=== PATIENT | female | born 1980 | race Caucasian/White ===

== ENCOUNTER → 2017-01-16 | Outpatient (CLI) | payer BC ==
--- NOTE | 2017-01-16 14:52 | RAD ---
Examination: 2 views of the lumbar spine History: History of back pain Comparison: None available. Findings: The vertebral body heights are maintained. No evidence of listhesis identified. The facets are well aligned. Impression: No acute osseous findings.
== END | disposition home or self-care (01) ==
LOC: RAD 14:19
PROVIDERS: ATTEND Family Medicine
DX: M54.5 Low back pain (principal)
CPT/HCPCS: 72100

== ENCOUNTER 2018-12-18 05:15 | Emergency (ER) | payer BC ==
[~2018-12-18] VITALS: Ht 162.6 cm; Wt 83.0 kg
--- NOTE | 2018-12-18 05:58 | PHYS DOC ---
Past History Past Medical History: No Pertinent History (ALIRIO SORENSEN DO) Past Surgical History: Tubal ligation Additional Past Surgical Histo: Left rotator cuff repair (ALIRIO SORENSEN DO) Smoking: Cigarettes Alcohol Use: None Drug Use: Marijuana Social History Narrative: a month ago in [place] (ALIRIO SORENSEN DO) Adult General Chief Complaint Chief Complaint: ABDOMINAL PAIN HPI HPI 38-year-old female sent with 2 day history of low back pain, abdominal pain, nausea, and diarrhea. Denies known sick contacts. Denies fever or chills. Denies known trauma. Patient with history of tubal ligation. (ALIRIO SORENSEN DO) Review of Systems Review of Systems Constitutional: Denies fever or chills Eyes: Denies redness or eye pain HENT: Denies nasal congestion or sore throat Respiratory: Denies cough or shortness of breath Cardiovascular: Denies chest pain or palpitations GI: Reports abdominal pain, nausea, and diarrhea : Denies dysuria or hematuria Musculoskeletal: Reports back pain Integument: Denies rash or skin lesions Neurologic: Denies headache, focal weakness or sensory changes Complete systems were reviewed and found to be within normal limits, except as documented in this note. (ALIRIO SORENSEN DO) Current Medications Current Medications Current Medications Medications (Trade) Dose Ordered Sig/Stephane Start Time Stop Time Status Last Admin Dose Admin Famotidine (Pepcid Vial) 20 mg 1X ONCE 12/18/18 06:00 12/18/18 06:01 UNV Ondansetron HCl (Zofran) 4 mg 1X ONCE 12/18/18 06:00 12/18/18 06:01 UNV Sodium Chloride 1,000 ml @ 1,000 mls/hr 1X ONCE 12/18/18 06:00 12/18/18 06:59 UNV (ALIRIO SORENSEN DO) Allergies Allergies Allergies Coded Allergies Type Severity Reaction Last Updated Verified No Known Drug Allergies 12/18/18 No (ALIRIO SORENSEN DO) Physical Exam Physical Exam Constitutional: Well developed, well nourished, ill appearing, non-toxic appearance HENT: Normocephalic, atraumatic, oropharynx moist Eyes: Conjunctiva normal, no discharge Neck: Normal range of motion, no tenderness, supple Cardiovascular: Heart rate normal, regular rhythm Lungs & Thorax: Bilateral breath sounds clear to auscultation, no wheezing Abdomen: Soft, no tenderness Skin: Warm, dry, no erythema, no rash Back: No midline tenderness, bilateral lumbar paraspinal tenderness, no CVA tenderness Extremities: No tenderness, ROM intact, no edema Neurologic: Alert and oriented X 3, no focal deficits noted Psychologic: Affect normal, judgement normal (ALIRIO SORENSEN DO) Current Patient Data Vital Signs Vital Signs Date Time Temp Pulse Resp B/P (MAP) Pulse Ox O2 Delivery O2 Flow Rate FiO2 12/18/18 05:29 98.4 90 16 97 Room Air (ALIRIO SORENSEN DO) EKG EKG [] (ALIRIO SORENSEN DO) Radiology/Procedures Radiology/Procedures [] (ALIRIO SORENSEN DO) Impressions: EXAM: CT ABDOMEN/PELVIS WITH CONTRAST. HISTORY: Abdominal pain, nausea. TECHNIQUE: Computed tomography of the abdomen and pelvis was performed after the intravenous administration of iodinated contrast. COMPARISON: None. FINDINGS: Lung windows through the visualized portions of the bases reveal no abnormality. Bone windows reveal no suspicious lesions. The liver, gallbladder, adrenal glands and pancreas are unremarkable. There is a small cyst in the left kidney. The right kidney is unremarkable. An 8 mm nodule in the spleen is likely a benign cyst or hemangioma. There are no pathologically enlarged lymph nodes. The colon is decompressed but demonstrates diffuse moderate wall thickening. The appendix is not inflamed. There is no small bowel obstruction or clear wall thickening. IMPRESSION: 1. Diffuse colonic wall thickening is consistent with colitis. Infectious or inflammatory etiologies are favored in this distribution. *One or more of the following individualized dose reduction techniques were utilized for this examination: 1. Automated exposure control. 2. Adjustment of the mA and/or kV according to patient size. 3. Use of iterative reconstruction technique. Electronically signed by: Reina Aguilar MD (12/18/2018 8:14 AM) [facility] DICTATED AND SIGNED BY: DAVID AGUILAR MD DATE: 12/18/18813 CC: BONNIE ALANIS DO; VIRGIL BEAL MD; ALIRIO SORENSEN DO ~ (BONNIE ALANIS DO) Course & Med Decision Making Course & Med Decision Making Pertinent Labs and Imaging studies reviewed. (See chart for details) Patient presents with abdominal pain with associated nausea and diarrhea. IV fluid hydration provided. Symptomatic treatment provided. Labs pending. CT abdomen/pelvis pending. Sign out given to Dr. Alanis for further evaluation and final disposition. Discussed current findings and plan with patient, who acknowledges understanding and agreement. (ALIRIO SORENSEN DO) Course & Med Decision Making Patient was given 4 morphine and 1 mg of Dilaudid for her pain. The patient's CT scan is significant for colitis, suggestive of infectious. See official report for more details. I will treat the patient with Augmentin for 7 days. I will give her first dose in the ED. I will also discharge her with [place] 5/325. (BONNIE ALANIS DO) Dragon Disclaimer Dragon Disclaimer This electronic medical record was generated, in whole or in part, using a voice recognition dictation system. (ALIRIO SORENSEN DO) Departure Departure: Impression: Primary Impression: Abdominal pain Additional Impression: Colitis Disposition: HOME, SELF-CARE Condition: STABLE Referrals: VIRGIL BEAL MD (PCP) Patient Instructions: Colitis Scripts Amoxicillin/Potassium Clav (AUGMENTIN 875-125 TABLET) 1 Each Tablet 1 TAB PO BID for colitis for 10 Days, #20 TAB 0 Refills Prov: BONNIE ALANIS DO 12/18/18 Hydrocodone Bit/Acetaminophen (NORCO 5-325 TABLET) 1 Each Tablet 1 TAB PO PRN Q6HRS PRN for PAIN, #14 TAB 0 Refills Prov: BONNIE ALANIS DO 12/18/18 Problem Qualifiers Primary Impression: Abdominal pain Abdominal location: generalized Qualified Codes: R10.84 - Generalized abdominal pain ALIRIO SORENSEN DO Dec 18, 2018 05:57 BONNIE ALANIS DO Dec 18, 2018 08:45
[2018-12-18] MEDS ORDERED: IOHEXOL 300 MG/ML 75 ML VIAL. IV ONE (06:15)
[2018-12-18] MEDS ORDERED: IV NORMAL SALINE 1,000ML 1,000 ML IV ONE (06:15)
[2018-12-18] MEDS ORDERED: FAMOTIDINE 20 MG/2 ML VIAL IVP ONE (06:15)
[2018-12-18] MEDS ORDERED: ONDANSETRON PF 4 MG/2 ML VIAL. IVP ONE (06:15)
[2018-12-18] MEDS ORDERED: CONTRAST GIVEN MC PRN (06:15)
[2018-12-18 06:19] LABS: BASO % 1 % (0-3); EOS % 0 % (0-3); HEMATOCRIT 40.2 % (36.0-47.0); HEMOGLOBIN 13.4 g/dL (12.0-15.5); LYMPH # 1.8 x10^3/uL (1.0-4.8); LYMPH % 27 % (24-48); MEAN CORPUSCULAR HEMOGLOBIN 29 pg (25-35); MEAN CORPUSCULAR HGB CONC 33 g/dL (31-37); MEAN CORPUSCULAR VOLUME 86 fL (79-100); MONO # 0.5 x10^3/uL (0.0-1.1); MONO % 8 % (0-9); NEUT # 4.4 x10^3uL (1.8-7.7); NEUT % 65 % (31-73); PLATELET COUNT 321 x10^3/uL (140-400); RED BLOOD COUNT 4.66 x10^6/uL (3.50-5.40); RED CELL DISTRIBUTION WIDTH 15.3 % (11.5-14.5); WHITE BLOOD COUNT 6.9 x10^3/uL (4.0-11.0)
[2018-12-18 06:24] LABS: BACTERIA,URINE FEW /HPF (0-FEW); BILIRUBIN,URINE NEG (NEG); CLARITY,URINE HAZY; COLOR,URINE YELLOW; GLUCOSE,URINE NEG (NEG); NITRITE,URINE NEG (NEG); SQUAMOUS EPITHELIAL CELL,UR FEW /LPF; UROBILINOGEN,URINE 0.2 mg/dL (0.2 mg/dL)
[2018-12-18 06:28] LABS: ALBUMIN 3.6 g/dL (3.4-5.0); ALBUMIN/GLOBULIN RATIO 0.9 (1.0-1.7); CALCIUM 8.8 mg/dL (8.5-10.1); CREATININE 0.8 mg/dL (0.6-1.0); GFR 81.2; MAGNESIUM 1.8 mg/dL (1.8-2.4); TOTAL BILIRUBIN 0.3 mg/dL (0.2-1.0); TOTAL PROTEIN 7.4 g/dL (6.4-8.2)
[2018-12-18] MEDS ORDERED: MORPHINE SULFATE 4 MG/ML DISP.SYRIN. IV ONE (07:00)
[2018-12-18] MEDS ORDERED: HYDROmorphone PF 1 MG/ML DISP.SYRIN IV ONE (07:45)
--- NOTE | 2018-12-18 08:17 | RAD ---
EXAM: CT ABDOMEN/PELVIS WITH CONTRAST. HISTORY: Abdominal pain, nausea. TECHNIQUE: Computed tomography of the abdomen and pelvis was performed after the intravenous administration of iodinated contrast. COMPARISON: None. FINDINGS: Lung windows through the visualized portions of the bases reveal no abnormality. Bone windows reveal no suspicious lesions. The liver, gallbladder, adrenal glands and pancreas are unremarkable. There is a small cyst in the left kidney. The right kidney is unremarkable. An 8 mm nodule in the spleen is likely a benign cyst or hemangioma. There are no pathologically enlarged lymph nodes. The colon is decompressed but demonstrates diffuse moderate wall thickening. The appendix is not inflamed. There is no small bowel obstruction or clear wall thickening. IMPRESSION: 1. Diffuse colonic wall thickening is consistent with colitis. Infectious or inflammatory etiologies are favored in this distribution. *One or more of the following individualized dose reduction techniques were utilized for this examination: 1. Automated exposure control. 2. Adjustment of the mA and/or kV according to patient size. 3. Use of iterative reconstruction technique. Electronically signed by: Reina Aguilar MD (12/18/2018 8:14 AM) [facility]
[2018-12-18] MEDS ORDERED: AMOX1TAB61 PO (08:44)
[2018-12-18] MEDS ORDERED: HYDR-3165 PO (08:44)
[2018-12-18] MEDS ORDERED: AMOXICILLIN/K CLAV 875/125MG TABLET. PO ONE (09:00)
[2018-12-18 09:05] VITALS: BP 126/70
== END 2018-12-18 09:19 | disposition home or self-care (01) ==
LOC: ER 05:15
DX: K52.9 Noninfective gastroenteritis and colitis, unspecified (principal); F17.210 Nicotine dependence, cigarettes, uncomplicated; Z98.51 Tubal ligation status
CPT/HCPCS: 36415; 74177; 80053; 81001; 81025; 83605; 83690; 83735; 85025; 87086; 96361; 96374; 96375; 99285; J1170; J2270; J2405; J3490; Q9967; J7030

== ENCOUNTER 2020-02-01 20:56 | Emergency (ER) | payer BC, OTHER ==
[~2020-02-01] VITALS: Ht 162.6 cm; Wt 77.4 kg
[~2020-02-01 20:56] MED LIST: AMOX1TAB61 PO; HYDR-3165 PO
[2020-02-01 21:00] VITALS: BP 140/91
--- NOTE | 2020-02-01 21:03 | PHYS DOC ---
Past History Past Medical History: No Pertinent History Past Surgical History: Tubal ligation Additional Past Surgical Histo: Left rotator cuff repair Smoking: Cigarettes Alcohol Use: None Drug Use: Marijuana Adult General Chief Complaint Chief Complaint: HAND PROBLEM HPI HPI Patient is a 39-year-old female who presents for dysuria and bilateral hand swelling. Reports dysuria started approximately 48 hours ago, no fever, flank pain, vaginal discharge, or other concerning signs or symptoms. States she also has had bilateral hand swelling that started around similar time with subjective numbness and tingling over her entire palmar surfaces, no known trauma, inciting event, recent ingestion or pain in neck and upper extremity areas. Patient concerned because she has been more fatigued than usual, reportedly fell asleep yesterday at 2 PM and woke up today at 3 PM sleeping 13 hours in total which is unusual for her. She works at local [employer] and is around [employer] daily, reports last being tested and was negative. Review of Systems Review of Systems Fourteen body systems of review of systems have been reviewed. See HPI for pertinent positives and negative responses, other bravo all other systems are negative, non-pertinent or non-contributory Allergies Allergies Allergies Coded Allergies Type Severity Reaction Last Updated Verified No Known Drug Allergies 12/18/18 No Physical Exam Physical Exam Constitutional: Well developed, well nourished, no acute distress, non-toxic appearance. HENT: Normocephalic, atraumatic, bilateral external ears normal, oropharynx moist, no oral exudates, nose normal. Eyes: PERRLA, EOMI, conjunctiva normal, no discharge. Neck: Normal range of motion, no tenderness, supple, no stridor. Cardiovascular: Heart rate regular without any murmurs rubs or gallops Lungs & Thorax: No respiratory distress or accessory muscle use, bilateral chest rise, diffuse wheezing without any rhonchi and/or rails Abdomen: Abdomen soft, non-tender, bowel sounds present in all quadrants, no guarding or rebound, nonacute abdomen. Skin: Warm, dry, no erythema, no rash. Back: No tenderness, no CVA tenderness. Extremities: No tenderness, no cyanosis, no clubbing, ROM intact, no edema. Neurologic: Alert and oriented X 3, cranial nerves II through XII intact, normal motor & sensory function, no focal deficits noted. Negative Spurling exam bilaterally Psychologic: Affect normal, judgement normal, mood normal. Current Patient Data Vital Signs Vital Signs Date Time Temp Pulse Resp B/P (MAP) Pulse Ox O2 Delivery O2 Flow Rate FiO2 02/01/20 21:00 98.1 83 16 140/91 (107) 99 Room Air Lab Results Laboratory Tests Test 02/01/20 21:05 02/01/20 21:22 Urine Collection Type Unknown Urine Color Kylie Urine Clarity Turbid Urine pH 6.0 Urine Specific [place] >=1.030 Urine Protein Neg (NEG-TRACE) Urine Glucose (UA) Neg mg/dL (NEG) Urine Ketones (Stick) Trace mg/dL (NEG) Urine Blood Small (NEG) Urine Nitrite Pos (NEG) Urine Bilirubin Neg (NEG) Urine Urobilinogen Dipstick 1.0 mg/dL (0.2 mg/dL) Urine Leukocyte Esterase Mod (NEG) Urine RBC 6-10 /HPF (0-2) Urine WBC >40 /HPF (0-4) Urine Squamous Epithelial Cells Few /LPF Urine Bacteria Many /HPF (0-FEW) Urine Mucus Mod /LPF Bedside Urine HCG, Qualitative hcg negative (Negative) EKG EKG [] Radiology/Procedures Radiology/Procedures [] Heart Score Risk Factors: Risk Factors: DM, Current or recent (<one month) smoker, HTN, HLP, family history of CAD, obesity. Risk Scores: Risk Factors: DM, Current or recent (<one month) smoker, HTN, HLP, family history of CAD, obesity. Course & Med Decision Making Course & Med Decision Making Pertinent Labs and Imaging studies reviewed. (See chart for details) Well-appearing and non-txic. Not . Unlikely TOA, Ovarian Torsion, PID, gonorrhea/chlamydia. Low suspicion for Infected Urolithiasis, AAA, Cholecystitis, Pancreatitis, SBO, Appendicitis, or other acute abdomen. Rx: Uncomplicated UTI Disposition: Discharge home. SRP discussed. Advised follow up with primary care provider within 24-72 hours. Patient to be tested for Covid at work per usual Monday Dragon Disclaimer Dragon Disclaimer This electronic medical record was generated, in whole or in part, using a voice recognition dictation system. Departure Departure: Impression: Primary Impression: UTI (urinary tract infection), uncomplicated Disposition: 01 DC HOME SELF CARE/HOMELESS Condition: STABLE Referrals: VIRGIL BEAL MD (PCP) Patient Instructions: Urinary Tract Infection Additional Instructions: You were seen for a urinary tract infection. Please continue to take the antibiotics as prescribed. You should return to the ED if you develop worsening pain, fever, flank pain, or any other new or concerning symptoms. Follow up with primary care for further management if ongoing symptoms. Scripts Nitrofurantoin Monohyd/M-Cryst (MACROBID 100 MG CAPSULE) 100 Mg Capsule 1 CAP PO BID for UTI for 5 Days, #9 CAP 0 Refills Prov: MUNIRA NINA DO 02/01/20 MUNIRA NINA DO Feb 01, 2020 21:03
[2020-02-01 21:30] LABS: BILIRUBIN,URINE NEG (NEG); CLARITY,URINE TURBID; COLOR,URINE AMBER; GLUCOSE,URINE NEG (NEG); NITRITE,URINE POS (NEG)
[2020-02-01 21:38] LABS: BACTERIA,URINE MANY /HPF (0-FEW); SQUAMOUS EPITHELIAL CELL,UR FEW /LPF; WBC,URINE >40 /HPF (0-4)
[2020-02-01] MEDS ORDERED: NITR100C62 PO (21:54)
[2020-02-01] MEDS ORDERED: NITROFURANTOIN MONOHYD/M-CRYST 100 MG CAPSULE. PO ONE (22:30)
== END 2020-02-01 22:02 | disposition home or self-care (01) ==
LOC: ER 20:56
DX: N39.0 Urinary tract infection, site not specified (principal); R30.0 Dysuria; R60.0 Localized edema; R53.83 Other fatigue; F17.210 Nicotine dependence, cigarettes, uncomplicated; F12.90 Cannabis use, unspecified, uncomplicated; Z98.51 Tubal ligation status; Z98.890 Other specified postprocedural states
CPT/HCPCS: 81001; 81025; 87086; 99283

== ENCOUNTER 2020-04-26 14:33 | Emergency (ER) | payer OTHER ==
[~2020-04-26] VITALS: Ht 162.6 cm; Wt 77.4 kg
[~2020-04-26 14:33] MED LIST changes: +NITR100C62 PO
[2020-04-26 14:44] VITALS: BP 159/76
--- NOTE | 2020-04-26 14:50 | PHYS DOC ---
Past History Past Medical History: No Pertinent History Past Surgical History: Tubal ligation Additional Past Surgical Histo: Left rotator cuff repair Smoking: Cigarettes Alcohol Use: Occasionally Drug Use: Marijuana Adult General Chief Complaint Chief Complaint: ABDOMINAL PAIN HPI HPI Patient is a 39-year-old female who presents today with abdominal pain. Pain started yesterday and is described as constant, diffuse, and difficult to characterize. Nothing makes it better. Eating and movement make it worse. The pain is associated with nausea and vomiting. She denies any recent illness, fevers, constipation, or diarrhea. She does state that she has had 4 bowel m ovements today that were normally formed. The pain does not radiate, and she rates it as a 10/10 in severity. Patient reports a history of colitis, and states that she had a flare-up last week at which time she did not seek medical treatment. Review of Systems Review of Systems Fourteen body systems of review of systems have been reviewed. See HPI for pertinent positives and negative responses, other bravo all other systems are negative, non-pertinent or non-contributory Allergies Allergies Allergies Coded Allergies Type Severity Reaction Last Updated Verified No Known Drug Allergies 02/01/20 No Physical Exam Physical Exam Constitutional: Well developed, well nourished, no acute distress, non-toxic appearance. Appears uncomfortable HENT: Normocephalic, atraumatic, bilateral external ears normal, oropharynx moist, no oral exudates, nose normal. Eyes: PERRLA, EOMI, conjunctiva normal, no discharge. Neck: Normal range of motion, no tenderness, supple, no stridor. Cardiovascular: Heart rate regular, sinus rhythm, no murmurs rubs or gallops Lungs & Thorax: Bilateral breath sounds clear to auscultation Abdomen: Bowel sounds normal, soft, generalized tenderness with guarding present, no rebound, no masses, no pulsatile masses. Nonsurgical abdomen, no pe ritoneal signs Skin: Warm, dry, no erythema, no rash. Back: No tenderness, no CVA tenderness. Extremities: No tenderness, no cyanosis, no clubbing, ROM intact, no edema. Neurologic: Alert and oriented X 3, grossly normal motor & sensory function, no focal deficits noted. Psychologic: Affect normal, judgement normal, mood normal. Current Patient Data Vital Signs Vital Signs Date Time Temp Pulse Resp B/P (MAP) Pulse Ox O2 Delivery O2 Flow Rate FiO2 04/26/20 14:44 98.3 86 18 159/76 (103) 95 Lab Results Laboratory Tests Test 04/26/20 15:20 White Blood Count 9.0 x10^3/uL Red Blood Count 4.67 x10^6/uL Hemoglobin 14.4 g/dL Hematocrit 43.6 % Mean Corpuscular Volume 93 fL Mean Corpuscular Hemoglobin 31 pg Mean Corpuscular Hemoglobin Concent 33 g/dL Red Cell Distribution Width 13.5 % Platelet Count 271 x10^3/uL Neutrophils (%) (Auto) 74 % Lymphocytes (%) (Auto) 20 % Monocytes (%) (Auto) 5 % Eosinophils (%) (Auto) 0 % Basophils (%) (Auto) 1 % Neutrophils # (Auto) 6.7 x10^3uL Lymphocytes # (Auto) 1.8 x10^3/uL Monocytes # (Auto) 0.4 x10^3/uL Eosinophils # (Auto) 0.0 x10^3/uL Basophils # (Auto) 0.0 x10^3/uL Sodium Level 140 mmol/L Potassium Level 3.8 mmol/L Chloride Level 106 mmol/L Carbon Dioxide Level 25 mmol/L Anion Gap 9 Blood Urea Nitrogen 7 mg/dL Creatinine 0.7 mg/dL Estimated GFR (Cockcroft-Gault) 94.2 BUN/Creatinine Ratio 10 Glucose Level 122 mg/dL Calcium Level 9.1 mg/dL Total Bilirubin 0.5 mg/dL Aspartate Amino Transf (AST/SGOT) 23 U/L Alanine Aminotransferase (ALT/SGPT) 36 U/L Alkaline Phosphatase 72 U/L Troponin I Quantitative < 0.017 ng/mL Total Protein 7.5 g/dL Albumin 3.7 g/dL Albumin/Globulin Ratio 1.0 Lipase 98 U/L Current Medications Medications (Trade) Dose Ordered Sig/Stephane Route PRN Reason Start Time Stop Time Status Last Admin Dose Admin Sodium Chloride 1,000 ml @ 1,000 mls/hr Q1H IV 04/26/20 15:00 04/26/20 15:59 DC 04/26/20 15:17 Ondansetron HCl (Zofran) 4 mg 1X ONCE IVP 04/26/20 15:00 04/26/20 15:08 DC 04/26/20 15:18 Morphine Sulfate (Morphine 2mg Syringe) 2 mg 1X ONCE IV 04/26/20 15:00 04/26/20 15:08 DC 04/26/20 15:18 Iohexol (Omnipaque 300 Mg/ml) 75 ml 1X ONCE IV 04/26/20 15:15 04/26/20 15:16 DC 04/26/20 15:40 EKG EKG EKG reviewed and interpreted by me. Normal sinus rhythm with a rate of 62 bpm. Intervals unremarkable. Normal axis. No ischemia. No STEMI. Radiology/Procedures Radiology/Procedures PROCEDURE: CT ABD PELV W/ IV CONTRST ONLY EXAM: CT ABDOMEN/PELVIS WITH CONTRAST. HISTORY: Left lower quadrant pain. TECHNIQUE: Computed tomography of the abdomen and pelvis was performed after the intravenous administration of iodinated contrast. One or more of the following individualized dose reduction techniques were utilized for this examination: 1. Automated exposure control. 2. Adjustment of the mA and/or kV according to patient size. 3. Use of iterative reconstruction technique. COMPARISON: 12/18/2018. FINDINGS: Lung windows through the visualized portions of the bases reveal no abnormality. Bone windows reveal no suspicious lesions. There is a small to moderate hiatal hernia. The liver, gallbladder, pancreas, spleen, adrenal glands and right kidney are unremarkable. A 9 mm cyst in the left kidney appears benign. There are no pathologically enlarged lymph nodes. Wall thickening throughout the colon is consistent with colitis. The appendix is not inflamed. There is no small bowel wall thickening or obstruction. The bladder is partially decompressed but also demonstrates wall thickening. IMPRESSION: 1. Diffuse colonic wall thickening is consistent with colitis. Infectious or inflammatory etiologies are favored in this distribution. 2. Small to moderate hiatal hernia. 3. Nonfocal bladder wall thickening suggests chronic outlet obstruction or inflammation. Correlate with urinalysis. Electronically signed by: Reina Aguilar MD (04/26/2020 4:11 PM) [facility] Heart Score C/O Chest Pain: N/A HEART Score for Chest Pain: HEART Score for Chest Pain Response (Comments) Value History Slighlty/Non-Suspicious 0 ECG Normal 0 Age < 45 0 Risk Factors 1 or 2 Risk Factors 1 Troponin < Normal Limit 0 Total 1 Risk Factors: Risk Factors: DM, Current or recent (<one month) smoker, HTN, HLP, family history of CAD, obesity. Risk Scores: Risk Factors: DM, Current or recent (<one month) smoker, HTN, HLP, family history of CAD, obesity. Course & Med Decision Making Course & Med Decision Making Afebrile hemodynamically stable patient with history and physical examination concerning for intra-abdominal pathology that is nonsurgical in nature Comprehensive ER work-up performed, consistent with colitis that patient has experienced in the past. She is unsure of prior diagnosis status post colonoscopy but thinks she was diagnosed with infectious colitis prior as she responded with antibiotics Joint decision to start antibiotics with close PCP follow-up within upcoming 72 hours and outpatient GI follow-up for colonoscopy after resolution of acute disease process Strict return precautions were discussed with good understanding by patient. All questions and concerns addressed prior to your departure in stable condition Dragon Disclaimer Dragon Disclaimer This electronic medical record was generated, in whole or in part, using a voice recognition dictation system. Departure Departure: Impression: Primary Impression: Colitis Disposition: HOME SELF CARE/HOMELESS Condition: STABLE Referrals: VIRGIL BEAL MD (PCP) Patient Instructions: Colitis Additional Instructions: As discussed prior to ER departure, you were diagnosed with colitis. You were given x2 antibiotics and educated on how to use them. Please discuss how to use them further with pharmacist when you apple picker this prescription as needed. I educated you extensively on alcohol cessation throughout duration of antibiotic use. We discussed need for close outpatient follow-up for repeat evaluation and outpatient GI consultation for colonoscopy after resolution of active disease. If any concerning signs or symptoms present prior to outpatient follow-up please do not hesitate to come back for repeat evaluation. It was pleasure to take care of you and I wish you a speedy recovery Scripts Metronidazole (FLAGYL) 500 Mg Tablet 500 MG PO TID for COLITIS for 7 Days, #21 TAB Prov: MUNIRA NINA DO 04/26/20 Ciprofloxacin Hcl (CIPRO) 500 Mg Tablet 1 TAB PO BID for COLITIS for 7 Days, #14 TAB 0 Refills Prov: MUNIRA NINA DO 04/26/20 MUNIRA NINA DO Apr 26, 2020 14:50
[2020-04-26] MEDS ORDERED: ONDANSETRON PF 4 MG/2 ML VIAL. IVP ONE (15:00)
[2020-04-26] MEDS ORDERED: MORPHINE SULFATE 2 MG/ML DISP.SYRIN. IV ONE (15:00)
[2020-04-26] MEDS ORDERED: IV NORMAL SALINE 1,000ML 1,000 ML IV SCH (15:00)
[2020-04-26] MEDS ORDERED: IOHEXOL 300 MG/ML 75 ML VIAL. IV ONE (15:15)
--- NOTE | 2020-04-26 15:25 | EKG ---
[address] [address] Test Date: 2020-04-26 Test Time: 15:18:47 Pat Name: LINDA MASSEY Department: Room: Gender: F Vb Developer: PATRICIA : [id number] Requested By: MUNIRA NINA Order Number: [id number] Reading MD: Measurements Intervals [place] Rate: 62 P: 54 WV: 146 QRS: 51 QRSD: 84 T: 32 QT: 422 QTc: 431 Interpretive Statements SINUS RHYTHM NORMAL ECG RI6.02 No previous ECG available for comparison
[2020-04-26 15:41] LABS: BASO % 1 % (0-3); EOS % 0 % (0-3); HEMATOCRIT 43.6 % (36.0-47.0); HEMOGLOBIN 14.4 g/dL (12.0-15.5); LYMPH # 1.8 x10^3/uL (1.0-4.8); LYMPH % 20 % (24-48); MEAN CORPUSCULAR HEMOGLOBIN 31 pg (25-35); MEAN CORPUSCULAR HGB CONC 33 g/dL (31-37); MEAN CORPUSCULAR VOLUME 93 fL (79-100); MONO # 0.4 x10^3/uL (0.0-1.1); MONO % 5 % (0-9); NEUT # 6.7 x10^3uL (1.8-7.7); NEUT % 74 % (31-73); PLATELET COUNT 271 x10^3/uL (140-400); RED BLOOD COUNT 4.67 x10^6/uL (3.50-5.40); RED CELL DISTRIBUTION WIDTH 13.5 % (11.5-14.5)
[2020-04-26 15:49] LABS: CALCIUM 9.1 mg/dL (8.5-10.1); CREATININE 0.7 mg/dL (0.6-1.0); GFR 94.2; POTASSIUM 3.8 mmol/L (3.5-5.1)
[2020-04-26 15:55] LABS: ALBUMIN 3.7 g/dL (3.4-5.0); TOTAL BILIRUBIN 0.5 mg/dL (0.2-1.0); TOTAL PROTEIN 7.5 g/dL (6.4-8.2)
--- NOTE | 2020-04-26 16:14 | RAD ---
EXAM: CT ABDOMEN/PELVIS WITH CONTRAST. HISTORY: Left lower quadrant pain. TECHNIQUE: Computed tomography of the abdomen and pelvis was performed after the intravenous administ ration of iodinated contrast. One or more of the following individualized dose reduction techniques w ere utilized for this examination: 1. Automated exposure control. 2. Adjustment of the mA and/or kV according to patient size. 3. Use of iterative reconstruction technique. COMPARISON: 12/18/2018. FINDINGS: Lung windows through the visualized portions of the bases reveal no abnormality. Bone windo ws reveal no suspicious lesions. There is a small to moderate hiatal hernia. The liver, gallbladder, pancreas, spleen, adrenal glands and right kidney are unremarkable. A 9 mm cyst in the left kidney appears benign. There are no pathol ogically enlarged lymph nodes. Wall thickening throughout the colon is consistent with colitis. The appendix is not inflamed. There is no small bowel wall thickening or obstruction. The bladder is partially decompressed but also demo nstrates wall thickening. IMPRESSION: 1. Diffuse colonic wall thickening is consistent with colitis. Infectious or inflammatory etiologies are favored in this distribution. 2. Small to moderate hiatal hernia. 3. Nonfocal bladder wall thickening suggests chronic outlet obstruction or inflammation. Correlate urinalysis. Electronically signed by: Reina Aguilar MD (04/26/2020 4:11 PM) [facility]
[2020-04-26] MEDS ORDERED: metroNIDAZOLE 500 MG TABLET ONE (16:30)
[2020-04-26] MEDS ORDERED: CIPROFLOXACIN HCL 500 MG TABLET PO ONE (16:30)
[2020-04-26] MEDS ORDERED: metroNIDAZOLE 500 MG TABLET PO ONE (16:30)
[2020-04-26] MEDS ORDERED: CIPROFLOXACIN HCL 500 MG TABLET ONE (16:31)
[2020-04-26] MEDS ORDERED: CIPR500T94 PO (16:34)
[2020-04-26] MEDS ORDERED: METR500T PO (16:34)
== END 2020-04-26 16:38 | disposition home or self-care (01) ==
LOC: ER 14:33
DX: K52.9 Noninfective gastroenteritis and colitis, unspecified (principal); F17.210 Nicotine dependence, cigarettes, uncomplicated; Z98.51 Tubal ligation status
CPT/HCPCS: 36415; 74177; 80053; 83690; 84484; 85025; 93005; 96361; 96374; 96375; 99285; J2270; J2405; J7030; Q9967

== ENCOUNTER 2020-08-13 08:33 | Emergency (ER) | payer OTHER ==
[~2020-08-13] VITALS: Ht 162.6 cm; Wt 79.7 kg
[~2020-08-13 08:33] MED LIST changes: +CIPR500T94 PO; +METR500T PO
[2020-08-13 08:40] VITALS: BP 139/92
--- NOTE | 2020-08-13 09:36 | PHYS DOC ---
Past History Past Medical History: Other Additional Past Medical Histor: colitis Past Surgical History: Tubal ligation Additional Past Surgical Histo: Left rotator cuff repair Smoking: Cigarettes Alcohol Use: Occasionally Drug Use: Marijuana Adult General Chief Complaint Chief Complaint: ABDOMINAL PAIN HPI HPI Patient is a 40-year-old female presenting for menstrual cramping. Reports this is an acute on chronic issue, states since her tubes were tied approximately 5 years ago she has had increasingly worsened menstrual cramping pain. First day of last menstrual period was yesterday. She has been taking Tylenol and muscle relaxers without significant relief. She has not seen her primary care physician for this issue or her [employer]ILDING [employer]CTION [employer] for this issue due to fact that she is never on her menstrual period when she sees him/her. No fever, chest pain, shortness of breath, ripping or tearing sensation in chest or abdomen, dysuria or other concerning signs or symptoms Review of Systems Review of Systems Fourteen body systems of review of systems have been reviewed. See HPI for pertinent positives and negative responses, other bravo all other systems are negative, non-pertinent or non-contributory Allergies Allergies Allergies Coded Allergies Type Severity Reaction Last Updated Verified No Known Drug Allergies 08/13/20 No Physical Exam Physical Exam Constitutional: Well developed, well nourished, no acute distress but does appear uncomfortable, non-toxic appearance. HENT: Normocephalic, atraumatic, bilateral external ears normal, oropharynx moist, no oral exudates, nose normal. Eyes: PERRLA, EOMI, conjunctiva normal, no discharge. Neck: Normal range of motion, no tenderness, supple, no stridor. Cardiovascular: Heart rate regular, sinus rhythm, no murmurs rubs or gallops Lungs & Thorax: Bilateral breath sounds clear to auscultation Abdomen: Bowel sounds normal, soft, no tenderness, no masses, no pulsatile masses. Nonsurgical abdomen, no peritoneal signs Skin: Warm, dry, no erythema, no rash. Back: No tenderness, no CVA tenderness. Extremities: No tenderness, no cyanosis, no clubbing, ROM intact, no edema. Neurologic: Alert and oriented X 3, grossly normal motor & sensory function, no focal deficits noted. Psychologic: Anxious affect and mood Current Patient Data Vital Signs Vital Signs Date Time Temp Pulse Resp B/P (MAP) Pulse Ox O2 Delivery O2 Flow Rate FiO2 08/13/20 08:40 98.6 104 22 139/92 (108) 98 Room Air EKG EKG [] Radiology/Procedures Radiology/Procedures [] Heart Score C/O Chest Pain: No Risk Factors: Risk Factors: DM, Current or recent (<one month) smoker, HTN, HLP, family history of CAD, obesity. Risk Scores: Risk Factors: DM, Current or recent (<one month) smoker, HTN, HLP, family history of CAD, obesity. Course & Med Decision Making Course & Med Decision Making ABCs unremarkable. I disclosed entirety of ER findings and discussed most likely diagnosis of menstrual period cramps. Patient symptoms resolved with IM Toradol. With that said I did disclose this might be an acute presentation of more concerning pathology and so, I stressed need for close outpatient follow-up to review today's ER visit. I discussed potential need for further diagnostic work-up in ER setting but given that patient was feeling better joint decision was made to discharge home. As such, strict return precautions were also discussed at length with good understanding by patient. Patient voiced understanding and agreement with the plan. Patient knows to come back for repeat evaluation if concerning signs or symptoms present prior to outpatient follow- up. Hemodynamically stable, ambulatory and well-appearing at time of disposition. Dragon Disclaimer Dragon Disclaimer This electronic medical record was generated, in whole or in part, using a voice recognition dictation system. Departure Departure: Impression: Primary Impression: Abdominal pain Additional Impression: Menstrual cramps Disposition: HOME / SELF CARE / HOMELESS Condition: IMPROVED Referrals: VIRGIL BEAL MD (PCP) Patient Instructions: Abdominal Pain (Nonspecific) Additional Instructions: You have been evaluated in the Emergency Department today for abdominal pain. Your evaluation was not suggestive of any emergent condition requiring medical i ntervention at this time. However, some abdominal problems make take more time to appear. Therefore, it is important for you to watch for any new symptoms or worsening of your current condition. As disclose, your vital signs, and physical examination were nonconcerning for any emergent or surgical issues. As disclose, your pain is likely related to menstrual cramping that is a known issue for you. Please take prescribed NSAID medications and use Tylenol as needed for adjunct pain control. Please contact your primary care physician today to review ER visit and need for close outpatient follow-up and potential [employer] referral Return to the Emergency Department if you experience worsening pain, persistent fevers greater than 100.4, recurrent vomiting, blood in vomit, blood in stool, dark tarry stool, chest pain, difficulty breathing, or any other concerning symptoms. Scripts Ibuprofen (IBUPROFEN) 800 Mg Tablet 1 TAB PO TID for menstrual cramping for 10 Days, #30 TAB 0 Refills Prov: MUNIRA NINA DO 08/13/20 Problem Qualifiers MUNIRA NINA DO Aug 13, 2020 09:36
[2020-08-13] MEDS: KETOROLAC 60 MG/2 ML VIAL. IM ONE (09:41)
[2020-08-13] MEDS ORDERED: IBUP800T19 PO (10:28)
== END 2020-08-13 10:38 | disposition home or self-care (01) ==
LOC: ER 08:33
DX: R10.9 Unspecified abdominal pain (principal); N94.6 Dysmenorrhea, unspecified; F17.210 Nicotine dependence, cigarettes, uncomplicated; F12.10 Cannabis abuse, uncomplicated; Z98.51 Tubal ligation status
CPT/HCPCS: 96372; 99283; J1885

== ENCOUNTER → 2020-09-07 | Outpatient (CLI) | payer BC ==
[2020-08-13 08:40] VITALS: BP 139/92
[~2020-09-07] MED LIST changes: +IBUP800T19 PO
--- NOTE | 2020-09-07 16:29 | RAD ---
EXAM: Pelvic sonogram. HISTORY: Dysfunction uterine bleeding. TECHNIQUE: Transabdominal sonographic imaging of the pelvis was performed. COMPARISON: None. FINDINGS: The uterus measures 10.4 x 6.8 x 5.1 cm. The endometrial stripe measures 8 mm in thickness. The ovaries are normal in size and demonstrate normal blood flow. There are subcentimeter nabothian cysts within the cervix. IMPRESSION: 1. No acute sonographic finding. 2. Small incidental nabothian cysts within the cervix. 3. Normal endometrial stripe thickness for the premenopausal status of patient. Electronically signed by: Maren Ansari MD (09/07/2020 4:27 PM) [id number]
== END ==
LOC: US 14:09
PROVIDERS: ATTEND Physician Assistant Medical
DX: N88.8 Other specified noninflammatory disorders of cervix uteri (principal); N93.8 Other specified abnormal uterine and vaginal bleeding; N94.6 Dysmenorrhea, unspecified
CPT/HCPCS: 76856

== ENCOUNTER 2020-11-15 14:40 | Emergency (ER) | payer BC ==
[~2020-11-15] VITALS: Ht 162.6 cm; Wt 75.0 kg
[2020-11-15 14:45] VITALS: BP 120/79
--- NOTE | 2020-11-15 15:23 | PHYS DOC ---
Past History Past Medical History: Other Additional Past Medical Histor: colitis Past Surgical History: Tubal ligation Additional Past Surgical Histo: Left rotator cuff repair Smoking: Cigarettes Alcohol Use: Occasionally Drug Use: Marijuana General Adult EDM: Chief Complaint: SORE THROAT HPI: HPI: 40-year-old female presents with sore throat. This is day 3. She has been getting progressively worse and is very painful to swallow even her saliva. She denies cough, fever, chills, other symptoms. She has tried Tylenol and ibuprofen without relief. No one else in her household is sick. Review of Systems: Review of Systems: Constitutional: Denies fever or chills Eyes: Denies change in visual acuity HENT: sore throat Respiratory: Denies cough or shortness of breath Cardiovascular: Denies chest pain or edema GI: Denies abdominal pain, nausea, vomiting, bloody stools or diarrhea : Denies dysuria Musculoskeletal: Denies back pain or joint pain Integument: Denies rash Neurologic: Denies headache, focal weakness or sensory changes Endocrine: Denies polyuria or polydipsia Lymphatic: Denies swollen glands Psychiatric: Denies depression or anxiety Allergies: Allergies: Allergies Coded Allergies Type Severity Reaction Last Updated Verified No Known Drug Allergies 08/13/20 No Physical Exam: PE: Constitutional: Well developed, well nourished, no acute distress, non-toxic appearance. [] HENT: Normocephalic, atraumatic, bilateral external ears normal, oropharynx and tonsils erythematous without exudates, nose normal. [] Eyes: PERRLA, EOMI, conjunctiva normal, no discharge. [] Neck: Normal range of motion, tender anterior and posterior cervical nodes. [] Cardiovascular: Heart rate regular rhythm, no murmur [] Lungs & Thorax: Bilateral breath sounds clear to auscultation [] Abdomen: Bowel sounds normal, soft, no tenderness, no masses, no pulsatile masses. [] Skin: Warm, dry, no erythema, no rash. [] Back: No tenderness, no CVA tenderness. [] Extremities: No tenderness, no cyanosis, no clubbing, ROM intact, no edema. [] Neurologic: Alert and oriented X 3, normal motor function, normal sensory function, no focal deficits noted. [] Psychologic: Affect normal, judgement normal, mood normal. [] Current Patient Data: Vital Signs: Vital Signs Date Time Temp Pulse Resp B/P (MAP) Pulse Ox O2 Delivery O2 Flow Rate FiO2 11/15/20 14:45 98.3 84 18 120/79 (93) 97 Room Air EKG: EKG: [] Radiology/Procedures: Radiology/Procedures: [] Heart Score: C/O Chest Pain: N/A Risk Factors: Risk Factors: DM, Current or recent (<one month) smoker, HTN, HLP, family history of CAD, obesity. Risk Scores: Score 0 - 3: 2.5% MACE over next 6 weeks - Discharge Home Score 4 - 6: 20.3% MACE over next 6 weeks - Admit for Clinical Observation Score 7 - 10: 72.7% MACE over next 6 weeks - Early Invasive Strategies Course & Med Decision Making: Course & Med Decision Making Pertinent Labs and Imaging studies reviewed. (See chart for details) The patient's rapid strep is negative. I have ordered Decadron 10 mg p.o. COVID-19 is pending. This is likely viral and there is nothing else to do. She can continue to try [id number] treatments as needed. She is stable for discharge at this time. [] Dragon Disclaimer: Dragon Disclaimer: This electronic medical record was generated, in whole or in part, using a voice recognition dictation system. Departure Departure: Impression: Primary Impression: Viral pharyngitis Disposition: HOME / SELF CARE / HOMELESS Condition: STABLE Referrals: VIRGIL BEAL MD (PCP) Patient Instructions: Viral Pharyngitis Additional Instructions: You have been tested for or diagnosed with COVID-19. It is an infection caused by a new type of coronavirus. COVID-19 will cause cold-like or mild flu symptoms in most. It can cause more severe symptoms like problems breathing in some. There is no treatment for COVID-19. The body will clear the infection over time. Self-care will help to ease discomfort. Steps to Take: Self-Care Rest as needed. Healthy habits may help you feel better. Steps include: Choose healthy foods including fruits and vegetables. Drink water throughout the day. Get plenty of sleep each night. If you smoke, try to quit. It may ease breathing. Avoid alcohol. Keep Others Healthy The virus can spread to others. Droplets are released every time you sneeze or cough. The droplets can get into the mouth, nose, or eyes of people near you and lead to infection. To lower the chances of spreading COVID-19 to others: Stay at home until your doctor has said it is safe to leave. If you tested positive this will mean staying isolated until both of the following are true: At least 7 days have passed since the start of illness. You are free of fever for at least 72 hours without the use of medicine. During this time: - Avoid public areas, events, or transportation. Do not return to work or school until your doctor has said it is safe to do so. - Call ahead if you need to go to a medical center. Let them know you may have COVID-19. It will help them guide you where to go. They may also ask you to wear a facemask when you come to the office. - If you call for emergency medical services, let them know you may have COVID- 19. While at home: - Try to avoid close contact with others. Stay about 6 feet away. - If possible, spend most of your time in a separate room from others. - Use a face mask if you will be in close contact with others such as sharing a room or vehicle. - Have someone wipe down common surfaces in the home. Use household senior ssis developer every day on areas like doorknobs, counters, or sinks. - Cough or sneeze into a tissue. Throw the tissue away right after use. If a tissue is not available, cough or sneeze into your elbow. - Wash your hands often. Wash them after sneezing or coughing. Use soap and water and wash for at least 20 seconds. Alcohol based hand street light lamp cleaner can be used if soap and water is not available. - Do not prepare food for others. Avoid sharing personal items like forks, spoons, or toothbrushes. - Avoid close contact with pets while you are sick. There is no evidence of the virus passing to pets. This is a safety step until more is known about this virus. Isolation can be frustrating. Social interaction can help. Keep in touch with friends and family through phone and tech options. You can still interact with others in your home, just keep a safe distance of about 6 feet. Follow-up: Your doctors office will check in with you to see if there are any changes in your health. You may be asked to keep track of symptoms to share with them. They will also let you know when you are clear to be in public again. Problems to Look Out For: Contact your doctor if your recovery is not going as you expect. Get emergency care if you have problems such as: - Trouble breathing - Nonstop chest pain or pressure - Changes in awareness, confusion, or problems waking - Lips or face have bluish color - Worsening of symptoms If you think you have an emergency, call for emergency medical services right away. As taken from [facility] BONNIE ALANIS DO Nov 15, 2020 15:23
[2020-11-15] MEDS ORDERED: DEXAMETHASONE SOD PHOS 10 MG/ML VIAL. PO ONE (15:30)
== END 2020-11-15 16:46 | disposition home or self-care (01) ==
LOC: ER 14:40
DX: J02.8 Acute pharyngitis due to other specified organisms (principal); F17.210 Nicotine dependence, cigarettes, uncomplicated; Z20.822 Contact with and (suspected) exposure to COVID-19
CPT/HCPCS: 87070; 87880; 99283; C9803; J1100; U0003